=== PATIENT | male | born 1945 | race Caucasian/White ===

== ENCOUNTER → 2018-09-01 | Outpatient (CLI) | payer OTHER ==
[~2018-09-01] VITALS: Ht 175.3 cm; Wt 108.9 kg
[~2018-09-01] MED LIST: ACETAMINOPHEN325 M1 PO; ADULT LOW DOSE81 MG PO; ALDACTONE25 MG PO; AMARYL4 MG PO; ASPIR 8181 MG PO; ASPIR-TRIN325 MG PO; ASPIRIN325 PO; ATORVASTATIN CA40 MG PO; CIPROFLOXACIN500 M3 PO; ENDUR-ACIN500 MG PO; FISH OIL 1,001000 M2 PO; FLAGYL500 MG PO; FUROSEMIDE 40 M40 MG PO; HYTRIN 5 M5 MG/1 CAP PO; K-DUR 20 MEQ T20 MEQ PO; KEFLEX500 M2 PO; LASIX 40 MG TAB40 M1 PO; LISINOPRIL20 MG PO; LISINOPRIL40 MG PO; LOPRESSOR100 MG PO; MAGNESIUM HYDROXIDE PO; METFORMIN HCL500 MG PO; MEXILETINE 150150 MG PO; NIACIN50 MG PO; OMEGA-31000 M1 PO; OMEPRAZOLE40 MG PO; PACERONE 200 M200 M1 PO; PERCOCET 7.5-31 EACH PO; POTASSIUM20 PO; PRINIVIL20 MG PO; RANITIDINE 150150 MG PO; SPIRIVA18 MCG INH; SPIRONOLACTONE25 M1 PO; SYNTHROID75 MCG PO; TOPROL XL100 MG PO; VENTOLIN HFA 1818 GM INH; ZOCOR40 MG PO
[2018-09-01 10:48] VITALS: BP 133/73
[2018-09-01 11:07] LABS: HEMATOCRIT 41.8 % (42.0-52.0); HEMOGLOBIN 13.9 gm/dL (14.0-18.0); MCHC 33.3 g/dL (28.0-37.0); MPV 8.5 fl. (7.2-11.1); RBC 4.5 mil/uL (4.50-6.00); RDW-CV 13.4 % (10.5-14.5); WBC 6.7 thou/uL (4.0-11.0)
[2018-09-01 11:17] LABS: APTT 26.3 Seconds (25.0-31.3); PROTIME 10.4 Seconds (9.20-11.50)
[2018-09-01 11:27] LABS: ALBUMIN 3.7 g/dL (3.4-5.0); CALCIUM 9.3 mg/dL (8.5-10.1); CREATININE 1.8 mg/dL (0.6-1.3); POTASSIUM 4.5 mmol/L (3.5-5.1); TOTAL BILIRUBIN 0.5 mg/dL (<0.1-1.0); TOTAL PROTEIN 7.2 g/dL (6.4-8.2)
[2018-09-01 12:56] VITALS: BP 125/58
--- NOTE | 2018-09-06 17:56 | CARD ---
[address] [address] CARDIAC CATH REPORT Name: SENG TORRES [id number] Admission: 09/01/18 Attend Phys: Douglas Weinstein MD Discharge: Date of : 41 Report #: [id number] THIS REPORT FOR: //name// APPROVED REPORT Study performed: 09/01/2018 11:07:45 Patient Status: Out-Patient Room #: Event Personnel: Douglas Weinstein Advertising Traffic Manager, Seema Ambrocio RN Machine Load Clerk, Sally Manuel RTR Scrub, Crescencio Amador Monitor Exam: single chamber ICD generator change. Indications: single chamber ICD generator at elective replacement. The patient is a 73 year-old male with a history of ischemic cardiomyopathy status post ICD placement for primary prevention. Intraoperative Conscious Sedation Fentanyl 50 mcg Implanted Devices: [employer]otron[employer] Ilivia 7 VRT DF1 pro-MRI single-chamber ICD generator, model number 10/06/64, serial #[id number] Procedure After informed consent was obtained the area of the left chest was prepped and draped in sterile fashion. Local anesthesia was achieved with 1% lidocaine. Next after an initial incision was made the generator was explanted using electrocautery and blunt dissection. The generator was detached from the lead. The pocket was then flushed with antibiotic solution. The new single lead ICD generator was attached to the ICD lead. The redundant lead and generator were placed within the device pocket. The deep tissues were closed with interrupted stitches of 2-0 Vicryl. The skin incision was then closed with a single subcuticular stitch of 4-0 Vicryl. Several Steri-Strips were placed across the incision. A sterile Telfa dressing was then covered with a Tegaderm. The patient tolerated procedure well without complication. Conclusion 1. Single-chamber ICD generator at elective replacement. 2. Successful replacement of dual-chamber ICD [place] [address] CARDIAC CATH REPORT Name: SENG TORRES Room: [facility]#: [id number] Admission: 09/01/18 Attend Phys: Douglas Weinstein MD Discharge: Date of : 41 Report #: [id number] 1. Follow-up site check in one week. 2. Follow-up ICD generator interrogation one month. <ELECTRONICALLY SIGNED> By: Douglas Weinstein MD, FACC 09/06/181755 [id number] 55Michaegina Weinstein MD, FACC /INF
== END | disposition home or self-care (01) ==
LOC: M.CL 10:05
PROVIDERS: Internal Medicine Cardiovascular Disease
DX: Z45.02 Encounter for adjustment and management of automatic implantable cardiac defibrillator (principal); I25.5 Ischemic cardiomyopathy; I10 Essential (primary) hypertension; E78.5 Hyperlipidemia, unspecified; I25.10 Atherosclerotic heart disease of native coronary artery without angina pectoris; E11.9 Type 2 diabetes mellitus without complications; I21.4 Non-ST elevation (NSTEMI) myocardial infarction; Z98.890 Other specified postprocedural states; Z88.6 Allergy status to analgesic agent; Z79.899 Other long term (current) drug therapy; Z79.82 Long term (current) use of aspirin